=== PATIENT | female | born 1985 | race African-American/Black ===

== ENCOUNTER 2017-01-18 14:05 | Emergency (ER) | payer SELFPAY ==
[~2017-01-18] VITALS: Ht 157.5 cm; Wt 62.0 kg
[2017-01-18] MEDS ORDERED: SODIUM CHLORIDE 0.9% 1,000 ML IV ONE (16:46)
[2017-01-18] MEDS ORDERED: ACETAMINOPHEN 325MG TABLET PO ONE (17:00)
[2017-01-18 18:10] LABS: CLARITY URINE CLEAR (CLEAR); COLOR URINE YELLOW (YELLOW); GLUCOSE URINE NEGATIVE (NEGATIVE); KETONES URINE NEGATIVE (NEGATIVE); LEUKOCYTE ESTERASE URINE 1+ (NEGATIVE); NITRITE URINE NEGATIVE (NEGATIVE); OCCULT BLOOD URINE NEGATIVE (NEGATIVE); PH URINE 6.5 (4.5-8.0); PROTEIN URINE NEGATIVE (NEGATIVE); SPECIFIC GRAVITY URINE 1.009 (1.005-1.030); UROBILINOGEN URINE 0.2 E.U./dL (0.2-1.0)
[2017-01-18 18:21] LABS: *AMPHETAMINES SCREEN URINE NEGATIVE (NEGATIVE); *BARBITURATES SCREEN URINE NEGATIVE (NEGATIVE); *BENZODIAZEPINES SCREEN URINE NEGATIVE (NEGATIVE); *COCAINE SCREEN URINE NEGATIVE (NEGATIVE); CANNABINOID URINE SCREEN NEGATIVE (NEGATIVE); METHADONE URINE SCREEN NEGATIVE (NEGATIVE); OPIATES URINE SCREEN NEGATIVE (NEGATIVE); PHENCYCLIDINE URINE SCREEN NEGATIVE (NEGATIVE)
[2017-01-18 18:40] LABS: BASOPHILS % 0.5 % (0.0-2.0); EOSINOPHILS % 0.8 % (0.0-5.0); HEMATOCRIT. 36.6 % (36.0-48.0); HEMOGLOBIN. 12.6 g/dL (12.0-16.0); LYMPHOCYTES % 40.3 % (20.0-50.0); MEAN CORPUSCULAR HEMOGLOBIN 31.9 pg (28.0-32.0); MEAN CORPUSCULAR VOLUME 92.3 fL (81.0-99.0); MEAN PLATELET VOLUME 8.8 fl (7.4-10.4); MONOCYTES % 9.4 % (2.0-8.0); PLATELET 178 x1000/uL (130-400); RED BLOOD CELL COUNT 3.96 mill/uL (4.2-5.4); RED CELL DISTRIBUTION WIDTH 13.9 % (11.6-14.6)
[2017-01-18 18:47] LABS: HCG SCREEN POSITIVE
[2017-01-18 18:58] LABS: CARBON DIOXIDE 24 mEq/L (21-32); CHLORIDE 101 mEq/L (98-107)
[2017-01-18 19:06] LABS: B-HCG QUANTITATIVE 66026 mIU/mL (<3)
[2017-01-18 20:40] VITALS: BP 120/68
== END 2017-01-18 20:49 | disposition home or self-care (01) ==
LOC: ER 14:35
DX: O26.891 Other specified pregnancy related conditions, first trimester (principal); R51 Headache; O23.41 Unspecified infection of urinary tract in pregnancy, first trimester; O20.9 Hemorrhage in early pregnancy, unspecified; O34.81 Maternal care for other abnormalities of pelvic organs, first trimester; N83.201 Unspecified ovarian cyst, right side; Z3A.01 Less than 8 weeks gestation of pregnancy
CPT/HCPCS: 36415; 76801; 76817; 80053; 80305; 81001; 81025; 84702; 84703; 85025; 86850; 86900; 86901; 96360; 96361; 99285; J7030; Z7610

== ENCOUNTER 2017-02-07 18:13 | Emergency (ER) | payer SELFPAY ==
[~2017-02-07] VITALS: Ht 162.6 cm; Wt 65.0 kg
[2017-02-07 18:19] VITALS: BP 127/74
== END 2017-02-07 20:15 | disposition left against medical advice (07) ==
LOC: ER 18:13
DX: O26.891 Other specified pregnancy related conditions, first trimester (principal); N93.9 Abnormal uterine and vaginal bleeding, unspecified; Z53.21 Procedure and treatment not carried out due to patient leaving prior to being seen by health care provider; Z3A.11 11 weeks gestation of pregnancy

== ENCOUNTER 2017-06-10 13:56 | Observation (INO) | payer MEDICAID, MEDICARE ==
[~2017-06-10] VITALS: Ht 157.5 cm; Wt 71.2 kg
[2017-06-10] MEDS ORDERED: PNV1TABL76 PO (14:15)
== END 2017-06-10 15:45 | disposition home or self-care (01) ==
LOC: L&D 13:56
PROVIDERS: ADMIT Obstetrics & Gynecology; ATTEND Obstetrics & Gynecology
DX: O26.892 Other specified pregnancy related conditions, second trimester (principal); R19.7 Diarrhea, unspecified; Z3A.27 27 weeks gestation of pregnancy
CPT/HCPCS: G0378 ×2; 99281

== ENCOUNTER 2017-06-10 16:21 | Emergency (ER) | payer MEDICAID, MEDICARE ==
[~2017-06-10] VITALS: Ht 162.6 cm; Wt 71.0 kg
[~2017-06-10 16:21] MED LIST: PNV1TABL76 PO
[2017-06-10 16:33] VITALS: BP 120/71
== END 2017-06-10 18:30 | disposition left against medical advice (07) ==
LOC: ER 16:21
DX: O26.892 Other specified pregnancy related conditions, second trimester (principal); R19.7 Diarrhea, unspecified; Z3A.27 27 weeks gestation of pregnancy
CPT/HCPCS: 99281